=== PATIENT | female | born 1945 ===

== ENCOUNTER 2018-09-22 07:35 | Outpatient (CLI) | payer OTHER | END 2018-09-22 07:37 | disposition home or self-care (01) | LOC: SONOGRAMA 07:35 | DX: E04.1 Nontoxic single thyroid nodule (principal) ==

== ENCOUNTER 2018-11-26 09:29 | Outpatient (CLI) | payer OTHER | END 2018-11-26 09:37 | disposition home or self-care (01) | LOC: SONOGRAMA 09:29 | DX: E04.1 Nontoxic single thyroid nodule (principal) ==

== ENCOUNTER 2024-05-24 15:11 | Outpatient (CLI) | payer OTHER | END 2024-05-24 15:12 | disposition home or self-care (01) | LOC: SONOGRAMA 15:11 | PROVIDERS: ATTEND Pathology Anatomic Pathology & Clinical Pathology | DX: D34 Benign neoplasm of thyroid gland (principal); E04.2 Nontoxic multinodular goiter ==